=== PATIENT | female | born 1950 | race Caucasian/White ===

== ENCOUNTER 2023-06-15 01:48 | Inpatient (IN) | payer MEDICARE ==
[2023-06-15] VITALS (15 sets, daily range): BP systolic 102–180; BP diastolic 66–140; PULSE 79–102; RESP 14–21; TEMP 98.3; O2SAT 93–100
[~2023-06-15] VITALS: Ht 167.6 cm; Wt 69.5 kg
[2023-06-15 02:25] LABS: BASOPHILS % (AUTO) 0.2 % (0-1); EOSINOPHILS % (AUTO) 0.1 % (0-6); HEMATOCRIT 43.8 % (35.0-45.0); HEMOGLOBIN 14.5 g/dl (12.0-16.0); LYMPHOCYTES # (AUTO) 0.8 X10'3 (1.1-4.8); LYMPHOCYTES % (AUTO) 6.7 % (21-51); MEAN CORPUSCULAR HEMOGLOBIN 30.7 PG (27.0-31.0); MEAN CORPUSCULAR HGB CONC 33.1 g/dL (33.0-36.5); MEAN CORPUSCULAR VOLUME 92.6 FL (78-98); MEAN PLATELET VOLUME 7.7 FL (7.4-10.4); MONOCYTES # (AUTO) 0.4 X10'3 (0-0.9); MONOCYTES % (AUTO) 3.3 % (2-12); NEUTROPHILS # (AUTO) 10.5 X10'3 (1.8-7.7); NEUTROPHILS % (AUTO) 89.7 % (42-75); PLATELET COUNT 307 X10'3 (140-440); RED BLOOD COUNT 4.72 X10'6 (4.20-5.60); RED CELL DISTRIBUTION WIDTH 14.1 % (11.5-14.5); WHITE BLOOD COUNT 11.7 X10'3 (4.5-11.0)
[2023-06-15 02:42] LABS: ALANINE AMINOTRANSFERASE 34 U/L (12-78); ALBUMIN 3.9 G/DL (3.4-5.0); ALKALINE PHOSPHATASE 107 IU/L (46-116); ANION GAP 7 (8-16); ASPARTATE AMINO TRANSFERASE 23 U/L (10-37); BILIRUBIN,TOTAL 0.2 MG/DL (0.1-1.0); BLOOD UREA NITROGEN 23 MG/DL (7-18); CHLORIDE 104 MMOL/L (99-107); CREATININE 0.92 MG/DL (0.40-0.90); GLUCOSE 131 MG/DL (70-104); LIPASE 189 U/L (73-393); POTASSIUM 4.5 MMOL/L (3.5-5.1); SODIUM 137 MMOL/L (135-145); TOTAL CARBON DIOXIDE 26.5 MMOL/L (24-32); TOTAL PROTEIN 7.7 G/DL (6.4-8.2); eCRCL 52 ML/MIN; eGFR 60 ML/MIN
[2023-06-15 03:48] LABS: BILIRUBIN,URINE NEGATIVE (Neg); COLOR,URINE YELLOW (Yellow); GLUCOSE, URINE NEGATIVE (Neg); KETONES,URINE NEGATIVE (Neg); LEUKOCYTE ESTERASE ,URINE NEGATIVE (Neg); NITRITES, URINE NEGATIVE (Neg); OCCULT BLOOD,URINE TRACE-INTACT (Neg); PH,URINE 5.5 (4.8-8.0); PROTEIN,URINE TRACE mg/dl (Neg); UROBILINOGEN,URINE 0.2 E.U/dL (0.2-1.0)
[2023-06-15 03:55] LABS: CLARITY,URINE SLIGHTLY CLOUDY (Clear); UA COLLECTION TYPE CLN CATCH MIDSTREAM
[2023-06-15 03:56] LABS: BACTERIA,URINE FEW /HPF (Neg); RBC,URINE 0-2 /HPF (0-2); SQUAMOUS EPITHELIAL CELL,UR FEW /LPF (FEW); WBC,URINE 0-4 /HPF (0-4)
[2023-06-15] MEDS ORDERED: ondansetron/PF 4mg/2ml inj IV ONE (05:10)
[2023-06-15] MEDS ORDERED: morphine 2 MG/ML inj. syringe IV ONE (05:10)
[2023-06-15] MEDS ORDERED: normal saline 1000ml 1,000 ML IV ONE ×2 (05:10→07:45)
[2023-06-15] MEDS ORDERED: metroNIDAZOLE-Flagyl 500mg/NS 100 ML IV STA (07:44)
[2023-06-15] MEDS ORDERED: CefTRIAXone/D5W-Rocephin 1gm 50 ML IV ONE (07:45)
[2023-06-15] MEDS ORDERED: magnesium 2GM in 50ml NS 50 ML IV PRN (08:15)
[2023-06-15] MEDS ORDERED: potassium Cl 20 mEq SR tablet PO PRN ×2 (08:15)
[2023-06-15] MEDS ORDERED: ondansetron/PF 4mg/2ml inj IV PRN ×2 (08:15→21:35)
[2023-06-15] MEDS ORDERED: morphine 2 MG/ML inj. syringe IV PRN (08:15)
[2023-06-15] MEDS ORDERED: acetaminophen 325mg tablet PO PRN ×2 (08:15)
[2023-06-15] MEDS ORDERED: potassium Cl 40MEQ/1/2NS 520ml 520 ML IV PRN (08:15)
[2023-06-15] MEDS ORDERED: magnesium 4gm in 100ml NS 100 ML IV PRN (08:15)
[2023-06-15] MEDS ORDERED: magnesium Cl slow-release 64mg tablet PO PRN (08:15)
[2023-06-15] MEDS: normal saline 1000ml 1,000 ML IV SCH ×2 (10:31→23:55)
[2023-06-15] MEDS ORDERED: TIOT18CA3 PO (12:05)
[2023-06-15] MEDS ORDERED: FERR134T2 PO (12:05)
[2023-06-15] MEDS ORDERED: VIT1CAPS9 PO (12:05)
[2023-06-15] MEDS ORDERED: OMEP20CA16 PO (12:05)
[2023-06-15] MEDS ORDERED: EZET10TA6 PO (12:05)
--- NOTE | 2023-06-15 13:44 | NUR ---
Pt Palmer at bedside. Phone # [phone]
--- NOTE | 2023-06-15 15:48 | NUR ---
Dr Briceño reports that pt needs to stay at NPO diet and may not be changed to liquid diet. Pt is scheduled for surgical procedure.
[2023-06-15] MEDS: HYDROcodone/acetaminophen 5mg/325mg tablet PO PRN ×2 (15:55→23:57)
--- NOTE | 2023-06-15 18:11 | NUR ---
Report given to Cait JOHN in PACU
[2023-06-15] MEDS ORDERED: BUPIVAcaine/PF 2.5 mg/ml (0.25%) 30ml vial ONE (18:43)
[2023-06-15] MEDS ORDERED: midazolam 1 mg/ML 2ml injection ONE (19:23)
[2023-06-15] MEDS ORDERED: sevoflurane 250ml liquid IH ONE (19:24)
[2023-06-15] MEDS ORDERED: fentaNYL /PF 50mcg/ml 5ml ampule ONE (19:25)
[2023-06-15] MEDS ORDERED: LIDOcaine 4% LTA kit 4ml solution TP ONE (19:32)
[2023-06-15] MEDS ORDERED: LIDOcaine 2% (20mg/ml) 5ml vial ONE (19:46)
[2023-06-15] MEDS ORDERED: ceFOXitin 1000 MG inj ONE ×2 (19:46)
[2023-06-15] MEDS ORDERED: rocuronium 10mg/ml inj IV ONE ×2 (19:46→21:02)
[2023-06-15] MEDS ORDERED: propofol inj 20 ML IV ONE (19:46)
[2023-06-15] MEDS ORDERED: dexamethasone sod phosphate 4mg/ml inj. ONE (19:47)
[2023-06-15] MEDS ORDERED: ondansetron/PF 4mg/2ml inj ONE (19:47)
[2023-06-15] MEDS: heparin, porcine 5000 units/ml vial SQ SCH (20:00)
[2023-06-15] MEDS ORDERED: ePHEDrine 50MG/ML INJ. ONE (21:02)
[2023-06-15] MEDS ORDERED: 0.9 % SODIUM CHLORIDE 10 ML VIAL ONE (21:02)
[2023-06-15] MEDS ORDERED: sugammadex 200mg/2ml injection IV ONE (21:15)
--- NOTE | 2023-06-15 21:26 | NUR ---
RECEIVED PATIENT FROM OR VIA HOSPITAL BED. DENIES PAIN. PATIENT COUGHING DUE TO LUNG ANOMOLY PER DR. YANEZ. REPORT RECEIVED. HYPERTENSIVE. LEFT AC 20G PIV WITH FLUIDS INFUSING PER ORDER. 3 LARGE BANDAIDS SITES HORIZONTALLY ACROSS ABDOMEN CDI. 5L MASK WITH SATURATIONS 98%.
[2023-06-15] MEDS ORDERED: naloxone 0.4 mg/ml inj IV PRN (21:35)
[2023-06-15] MEDS ORDERED: HYDROcodone/acetaminophen 5mg/325mg tablet PO PRN (21:35)
--- NOTE | 2023-06-15 21:50 | NUR ---
Patient in room ORTHO 4011. I have received report from ALVARO Chavira and had the opportunity to ask questions and assume patient care.
[2023-06-15] MEDS: ipratropium 0.5 MG/2.5ML nebule IH SCH (22:12)
--- NOTE | 2023-06-15 22:36 | NUR ---
PATIENT MEETS DISCHARGE CRITERIA FROM RECOVERY. DENIES PAIN. BANDAID SITES CDI. COUGHING SLOWED AFTER BREATHING TREATMENT. REPORT CALLED TO [facility]. BELONGINGS WITH FAMILY. AND NIECE ACCOMPANIED TO FLOOR. TRANSFERRED TO [facility]. ON 2L NC WITH SATURATIONS 95%.
--- NOTE | 2023-06-15 22:40 | NUR ---
pt arrived to floor in hospital bed. oriented to room. call light in reach.
[2023-06-15] MEDS: ciprofloxacin lact 400MG/200ML 200 ML IV SCH (23:49)
[2023-06-15] MEDS: metroNIDAZOLE-Flagyl 500mg/NS 100 ML IV SCH (23:53)
[2023-06-16] VITALS (16 sets, daily range): BP systolic 102–144; BP diastolic 50–74; PULSE 70–97; RESP 16–18; TEMP 98–98.4; O2SAT 94–98
[2023-06-16] MEDS: HYDROcodone/acetaminophen 10/325mg tab PO PRN ×3 (04:53→14:30)
[2023-06-16] MEDS: ipratropium 0.5 MG/2.5ML nebule IH PRN (04:53)
--- NOTE | 2023-06-16 06:45 | NUR ---
Patient in room ORTHO 4011. I have received report from ALVARO Sparks and had the opportunity to ask questions and assume patient care.
[2023-06-16 06:48] LABS: BASOPHILS % (AUTO) 0.1 % (0-1); EOSINOPHILS % (AUTO) 0 % (0-6); HEMATOCRIT 37.3 % (35.0-45.0); HEMOGLOBIN 12.5 g/dl (12.0-16.0); LYMPHOCYTES # (AUTO) 0.5 X10'3 (1.1-4.8); LYMPHOCYTES % (AUTO) 4.2 % (21-51); MEAN CORPUSCULAR HGB CONC 33.5 g/dL (33.0-36.5); MEAN CORPUSCULAR VOLUME 92.5 FL (78-98); MEAN PLATELET VOLUME 7.9 FL (7.4-10.4); MONOCYTES # (AUTO) 0.3 X10'3 (0-0.9); MONOCYTES % (AUTO) 3.1 % (2-12); NEUTROPHILS # (AUTO) 9.9 X10'3 (1.8-7.7); NEUTROPHILS % (AUTO) 92.6 % (42-75); PLATELET COUNT 252 X10'3 (140-440); RED BLOOD COUNT 4.04 X10'6 (4.20-5.60); RED CELL DISTRIBUTION WIDTH 14.2 % (11.5-14.5); WHITE BLOOD COUNT 10.7 X10'3 (4.5-11.0)
--- NOTE | 2023-06-16 06:48 | NUR ---
Problems reprioritized. Patient report given, questions answered & plan of care reviewed with ALVARO Gibson.
[2023-06-16 06:56] LABS: ALANINE AMINOTRANSFERASE 47 U/L (12-78); ALKALINE PHOSPHATASE 81 IU/L (46-116); ANION GAP 9 (8-16); ASPARTATE AMINO TRANSFERASE 52 U/L (10-37); BILIRUBIN,TOTAL 0.3 MG/DL (0.1-1.0); BLOOD UREA NITROGEN 10 MG/DL (7-18); BUN/CREATININE RATIO 14.1 (10.0-20.0); CALCIUM 8.1 MG/DL (8.5-10.1); CHLORIDE 107 MMOL/L (99-107); CREATININE 0.71 MG/DL (0.40-0.90); GLUCOSE 127 MG/DL (70-104); POTASSIUM 4.4 MMOL/L (3.5-5.1); SODIUM 142 MMOL/L (135-145); TOTAL CARBON DIOXIDE 26.3 MMOL/L (24-32); TOTAL PROTEIN 6.1 G/DL (6.4-8.2); eCRCL 67 ML/MIN; eGFR 81 ML/MIN
[2023-06-16] MEDS ORDERED: ipratropium 0.5 MG/2.5ML nebule IH SCH (08:00)
[2023-06-16] MEDS: heparin, porcine 5000 units/ml vial SQ SCH ×2 (08:11→20:28)
--- NOTE | 2023-06-16 08:18 | NUR ---
Pts IV is infiltrated. Attempting to place IV, antibiotics have not been able to be administered at 0800 but will be shortly.
[2023-06-16] MEDS: ipratropium 0.5 MG/2.5ML nebule IH SCH ×3 (08:56→20:04)
[2023-06-16] MEDS: metroNIDAZOLE-Flagyl 500mg/NS 100 ML IV SCH ×2 (09:24→20:27)
[2023-06-16] MEDS: ciprofloxacin lact 400MG/200ML 200 ML IV SCH ×2 (10:50→20:26)
--- NOTE | 2023-06-16 10:58 | NUR ---
Nutrition Consult "concerns after surgery": Pt s/p lap cholecystectomy 06/15 per EMR. Pt/SO seen by RD at bedside; pt reports questions on diet advancement post-op currently on clear liquids. RD educated pt/SO on interim diet guidelines post-op though encouraged no long-term diet changes necessary. RD encouraged pt/SO to contact dietitian's office if further nutrition questions/concerns. Pt reports corn allergy- added into EMR and dietary notified. Addendum: 06/16/23 at [address] Amended: Links added.
[2023-06-16] MEDS: normal saline 1000ml 1,000 ML IV SCH ×2 (14:15→15:32)
--- NOTE | 2023-06-16 18:26 | NUR ---
Problems reprioritized. Patient report given, questions answered & plan of care reviewed with ALVARO Sparks.
--- NOTE | 2023-06-16 18:30 | NUR ---
Patient in room ORTHO 4011. I have received report from ALVARO Gibson and had the opportunity to ask questions and assume patient care.
[2023-06-16] MEDS: morphine 2 MG/ML inj. syringe IV PRN (20:37)
[2023-06-17] VITALS (12 sets, daily range): BP systolic 111–125; BP diastolic 55–66; PULSE 65–83; RESP 13–22; TEMP 97.9–98.3; O2SAT 94–96
[2023-06-17] MEDS: normal saline 1000ml 1,000 ML IV SCH (00:15)
[2023-06-17] MEDS: HYDROcodone/acetaminophen 10/325mg tab PO PRN ×3 (01:30→13:16)
[2023-06-17] MEDS: ipratropium 0.5 MG/2.5ML nebule IH SCH ×4 (03:30→20:09)
[2023-06-17] MEDS: morphine 2 MG/ML inj. syringe IV PRN (04:52)
--- NOTE | 2023-06-17 06:30 | NUR ---
Problems reprioritized. Patient report given, questions answered & plan of care reviewed with ALVARO Gibson.
[2023-06-17 06:32] LABS: BASOPHILS % (AUTO) 0.4 % (0-1); EOSINOPHILS % (AUTO) 0.4 % (0-6); HEMATOCRIT 35.3 % (35.0-45.0); HEMOGLOBIN 11.7 g/dl (12.0-16.0); LYMPHOCYTES # (AUTO) 1.4 X10'3 (1.1-4.8); LYMPHOCYTES % (AUTO) 14.2 % (21-51); MEAN CORPUSCULAR HEMOGLOBIN 30.9 PG (27.0-31.0); MEAN CORPUSCULAR HGB CONC 33.2 g/dL (33.0-36.5); MEAN PLATELET VOLUME 8.5 FL (7.4-10.4); MONOCYTES # (AUTO) 0.7 X10'3 (0-0.9); NEUTROPHILS # (AUTO) 7.8 X10'3 (1.8-7.7); PLATELET COUNT 222 X10'3 (140-440); RED BLOOD COUNT 3.79 X10'6 (4.20-5.60); RED CELL DISTRIBUTION WIDTH 14.3 % (11.5-14.5)
--- NOTE | 2023-06-17 06:39 | NUR ---
Patient in room ORTHO 4011. I have received report from ALVARO Sparks and had the opportunity to ask questions and assume patient care.
[2023-06-17 06:40] LABS: ALANINE AMINOTRANSFERASE 60 U/L (12-78); ALBUMIN 2.9 G/DL (3.4-5.0); ALKALINE PHOSPHATASE 80 IU/L (46-116); ANION GAP 7 (8-16); ASPARTATE AMINO TRANSFERASE 49 U/L (10-37); BILIRUBIN,TOTAL 0.3 MG/DL (0.1-1.0); BLOOD UREA NITROGEN 7 MG/DL (7-18); BUN/CREATININE RATIO 9.3 (10.0-20.0); CALCIUM 8.2 MG/DL (8.5-10.1); CHLORIDE 107 MMOL/L (99-107); CREATININE 0.75 MG/DL (0.40-0.90); GLUCOSE 100 MG/DL (70-104); POTASSIUM 3.6 MMOL/L (3.5-5.1); SODIUM 139 MMOL/L (135-145); TOTAL CARBON DIOXIDE 24.9 MMOL/L (24-32); TOTAL PROTEIN 5.7 G/DL (6.4-8.2); eCRCL 63 ML/MIN; eGFR 76 ML/MIN
[2023-06-17] MEDS: metroNIDAZOLE-Flagyl 500mg/NS 100 ML IV SCH (08:36)
[2023-06-17] MEDS: heparin, porcine 5000 units/ml vial SQ SCH ×2 (08:37→20:58)
[2023-06-17] MEDS: ciprofloxacin lact 400MG/200ML 200 ML IV SCH (09:56)
[2023-06-17] MEDS: ipratropium 0.5 MG/2.5ML nebule IH PRN (16:39)
--- NOTE | 2023-06-17 18:30 | NUR ---
Patient in room ORTHO 4011. I have received report from ALVARO Gibson and had the opportunity to ask questions and assume patient care.
--- NOTE | 2023-06-17 18:32 | NUR ---
Problems reprioritized. Patient report given, questions answered & plan of care reviewed with ALVARO Sparks.
[2023-06-17] MEDS: metoclopramide 5 mg/ml inj IV PRN (20:59)
[2023-06-18] VITALS (10 sets, daily range): BP systolic 107–134; BP diastolic 63–82; PULSE 74–84; RESP 14–18; TEMP 98.3–98.9; O2SAT 5–99
[2023-06-18] MEDS: HYDROcodone/acetaminophen 10/325mg tab PO PRN (01:01)
[2023-06-18] MEDS: ipratropium 0.5 MG/2.5ML nebule IH SCH ×3 (02:08→16:47)
[2023-06-18] MEDS: metoclopramide 5 mg/ml inj IV PRN (03:02)
[2023-06-18 06:58] LABS: BASOPHILS % (AUTO) 0.3 % (0-1); EOSINOPHILS # (AUTO) 0.1 X10'3 (0-0.9); EOSINOPHILS % (AUTO) 1.4 % (0-6); HEMATOCRIT 37.4 % (35.0-45.0); HEMOGLOBIN 12.5 g/dl (12.0-16.0); LYMPHOCYTES # (AUTO) 1.5 X10'3 (1.1-4.8); LYMPHOCYTES % (AUTO) 17.5 % (21-51); MEAN CORPUSCULAR HEMOGLOBIN 31.1 PG (27.0-31.0); MEAN CORPUSCULAR HGB CONC 33.3 g/dL (33.0-36.5); MEAN CORPUSCULAR VOLUME 93.2 FL (78-98); MEAN PLATELET VOLUME 7.7 FL (7.4-10.4); MONOCYTES # (AUTO) 0.9 X10'3 (0-0.9); MONOCYTES % (AUTO) 10.2 % (2-12); NEUTROPHILS % (AUTO) 70.6 % (42-75); PLATELET COUNT 242 X10'3 (140-440); RED BLOOD COUNT 4.01 X10'6 (4.20-5.60); RED CELL DISTRIBUTION WIDTH 14.2 % (11.5-14.5); WHITE BLOOD COUNT 8.6 X10'3 (4.5-11.0)
--- NOTE | 2023-06-18 07:00 | NUR ---
Patient in room ORTHO 4011. I have received report from paulette Bennett and had the opportunity to ask questions and assume patient care.
--- NOTE | 2023-06-18 07:20 | NUR ---
Problems reprioritized. Patient report given, questions answered & plan of care reviewed with ALVARO Gibson.
[2023-06-18 07:31] LABS: ALANINE AMINOTRANSFERASE 59 U/L (12-78); ALBUMIN/GLOBULIN RATIO 0.9 (1.1-1.5); ALKALINE PHOSPHATASE 89 IU/L (46-116); ANION GAP 7 (8-16); ASPARTATE AMINO TRANSFERASE 41 U/L (10-37); BILIRUBIN,TOTAL 0.4 MG/DL (0.1-1.0); BLOOD UREA NITROGEN 6 MG/DL (7-18); BUN/CREATININE RATIO 7.7 (10.0-20.0); CALCIUM 8.8 MG/DL (8.5-10.1); CHLORIDE 104 MMOL/L (99-107); CREATININE 0.78 MG/DL (0.40-0.90); GLUCOSE 90 MG/DL (70-104); POTASSIUM 3.6 MMOL/L (3.5-5.1); SODIUM 139 MMOL/L (135-145); TOTAL PROTEIN 6.2 G/DL (6.4-8.2); eCRCL 61 ML/MIN; eGFR 73 ML/MIN
[2023-06-18] MEDS: heparin, porcine 5000 units/ml vial SQ SCH (08:00)
[2023-06-18] MEDS: HYDROcodone/acetaminophen 5mg/325mg tablet PO PRN ×2 (08:08→13:22)
[2023-06-18] MEDS: ipratropium 0.5 MG/2.5ML nebule IH PRN (11:44)
[2023-06-18] MEDS ORDERED: metoclopramide 5 mg/ml inj IV SCH ×2 (15:30→20:00)
[2023-06-18] MEDS ORDERED: HYDR-3964 PO (17:10)
--- NOTE | 2023-06-18 17:29 | NUR ---
pt given discharge packet and was able to discuss/answer any questions about discharge. Pt was wheelchaired down to the lobby with all of her belongings and left in a private vehicle with her . Pt was in stable condition and in no distress.
== END 2023-06-18 17:30 | disposition home or self-care (01) | DRG 418 ==
LOC: ER 01:50 → ED HOLD 08:17 → ORTHO 4S 20:02
PROVIDERS: ADMIT Internal Medicine; ATTEND Internal Medicine
PROC: 8E0W4CZ Robotic Assisted Procedure of Trunk Region, Percutaneous Endoscopic Approach (ICD-10-PCS; 2023-06-15)
PROC: 0FT44ZZ Resection of Gallbladder, Percutaneous Endoscopic Approach (ICD-10-PCS; principal; 2023-06-15 19:24)
DX: K80.00 Calculus of gallbladder with acute cholecystitis without obstruction (principal); N17.9 Acute kidney failure, unspecified; E78.5 Hyperlipidemia, unspecified; E88.01 Alpha-1-antitrypsin deficiency; Z90.710 Acquired absence of both cervix and uterus; Z88.1 Allergy status to other antibiotic agents; Z88.0 Allergy status to penicillin
CPT/HCPCS: 36415; 74176; 76700; 80053; 81001; 83605; 83690; 83735; 85025; 87040; 87081; 88304; 93005; 94640; 94760; 96361; 96374; 96375; 97116; 97161; 97530; 99285; A4215; A4615; A4618; A7000; G0378; J0694; J0696; J0744; J1100; J1644; J2250; J2270; J2405; J2704; J2765; J3010; J3490; J7030